=== PATIENT | female | born 1975 | race Caucasian/White ===

== ENCOUNTER 2020-06-02 17:23 | Emergency (ER) | payer OTHER ==
[~2020-06-02] VITALS: Ht 167.6 cm; Wt 81.7 kg
[2020-06-02] MEDS ORDERED: IMITREX 25 MG T25 M1 PO (17:35)
[2020-06-02] MEDS ORDERED: NEURONTIN 300M300 M2 PO (17:56)
[2020-06-02] MEDS ORDERED: VALACYCLOVIR1000 MG PO (17:56)
[2020-06-02 18:14] VITALS: BP 120/82
== END 2020-06-02 18:14 | disposition home or self-care (01) ==
LOC: M.ERS 17:23
DX: B02.23 Postherpetic polyneuropathy (principal); B02.9 Zoster without complications; G43.909 Migraine, unspecified, not intractable, without status migrainosus